=== PATIENT | female | born 1995 | race Caucasian/White ===

== ENCOUNTER 2017-03-12 19:18 | Emergency (ER) | payer OTHER ==
--- NOTE | 2017-03-12 20:07 | ER Document Report ---
ED Medical Screen (RME) - General Chief Complaint: Dizziness Stated Complaint: DIZZINESS Time seen by provider: 20:06 Mode of Arrival: Ambulatory Information source: Patient Notes: This is a 21-year-old female that presents to the emergency room with acute onset of left sharp chest pain. Patient states that she was driving at the time to rest kickball tournament. Patient states she did play a couple of games during the day after the onset of the pain. She presented to the ER when the pain persisted. - Related Data Allergies/Adverse Reactions: No Known Allergies Allergy (Unverified 03/12/17 19:24)
[2017-03-12 20:28] LABS: ABSOLUTE BASOPHILS # (AUTO) 0.1 10^3/uL (0.0-0.2); ABSOLUTE EOSINOPHILS # (AUTO) 0.1 10^3/uL (0.0-0.6); ABSOLUTE LYMPHOCYTES (AUTO) 2.9 10^3/uL (0.5-4.7); ABSOLUTE MONOCYTES (AUTO) 0.8 10^3/uL (0.1-1.4); ABSOLUTE NEUT (AUTO) 10.4 10^3/uL (1.7-8.2); BASOPHILS % (AUTO) 0.6 % (0-2); EOSINOPHILS % (AUTO) 0.5 % (0-6); HEMOGLOBIN 13.9 g/dL (12.0-15.5); HGB HCT DIFFERENCE 0.7; LYMPHOCYTES % (AUTO) 20.1 % (13-45); MEAN CORPUSCULAR HEMOGLOBIN 30.1 pg (27.0-33.4); MEAN CORPUSCULAR HGB CONC 33.8 g/dL (32.0-36.0); MEAN CORPUSCULAR VOLUME 89 fl (80-97); MONOCYTES % (AUTO) 5.7 % (3-13); RED BLOOD COUNT 4.61 10^6/uL (3.72-5.28); RED CELL DISTRIBUTION WIDTH 12.8 % (11.5-14.0); SEGMENTED NEUTROPHILS % (AUTO) 73.1 % (42-78); WHITE BLOOD COUNT 14.3 10^3/uL (4.0-10.5)
[2017-03-12 20:45] LABS: ALANINE AMINOTRANSFERASE 25 U/L (9-52); ALBUMIN 3.9 g/dL (3.5-5.0); ALKALINE PHOSPHATASE 66 U/L (38-126); ANION GAP 8 (5-19); ASPARTATE AMINO TRANSFERASE 14 U/L (14-36); BILIRUBIN,DIRECT 0.2 mg/dL (0.0-0.4); BLOOD UREA NITROGEN 10 mg/dL (7-20); CALCIUM 9.1 mg/dL (8.4-10.2); CARBON DIOXIDE 28 mmol/L (22-30); CHLORIDE 104 mmol/L (98-107); CREATININE RESULT 0.81 mg/dL (0.52-1.25); GLUCOSE 92 mg/dL (75-110); POTASSIUM 4.3 mmol/L (3.6-5.0); SODIUM 140.3 mmol/L (137-145); TOTAL PROTEIN 6.6 g/dL (6.3-8.2)
--- NOTE | 2017-03-12 20:47 | EKG REPORT ---
SEVERITY:- OTHERWISE NORMAL ECG - SINUS TACHYCARDIA : Confirmed by: Grover Brunner MD 12-Mar-2017 20:46:24
[2017-03-12] MEDS ORDERED: KETOROLAC TROMETHAMINE 60 MG/2 ML SDV IM ONE (22:11)
[2017-03-12] MEDS ORDERED: DIPHENHYDRAMINE HCL 50 MG/ML VIAL IM ONE (22:11)
[2017-03-12] MEDS ORDERED: PROCHLORPERAZINE EDISYLATE INJ 10 MG/2 ML VIAL IM ONE (22:11)
--- NOTE | 2017-03-12 22:11 | ER Document Report ---
ED General - General Time seen by provider: 22:05 Mode of Arrival: Ambulatory Information source: Patient TRAVEL OUTSIDE OF THE [place] IN LAST 30 DAYS: No - HPI Onset: This afternoon - Refer to HPI notes Similar symptoms previously: No Recently seen / treated by doctor: No <LOS JAIMES - Last Filed: 03/12/17 22:52> <TAVARES VALIENTE - Last Filed: 03/12/17 23:37> - General Chief Complaint: Dizziness Stated Complaint: DIZZINESS Notes: Patient is a 21-year-old female presented to the emergency department for pain to her left chest and underneath her left breast. Patient states her pain was onset at 12:30 today. Patient describes this pain as sharp and states it moves up into her collarbone but denies it radiating into her back. Patient states the pain came on after she had been driving. Patient plays kickball and states that she was getting out on purpose because she could not run to first base due to her pain. Patient states that her pain is exacerbated with coughing, deep breaths, and movement. Patient states she also had some dizziness and lightheadedness that was onset at dinner around 18:00 or 19:00 tonight. Patient states that she has had one previous anxiety attack that this pain is different. During exam patient states that when there is palpation to her chest it doesn't hurt but instead makes her feel like she can't breathe. Patient states three weeks ago she went to [place] which was [address] Patient denies any personal or family history of blood clots. Patient denies any usage of control. Patient has no known allergies. (LOS JAIMES) - Related Data Allergies/Adverse Reactions: No Known Allergies Allergy (Unverified 03/12/17 19:24) Past Medical History - General Information source: Patient, Friend - Social History Smoking Status: Never Smoker Cigarette use (# per day): No Chew tobacco use (# tins/day): No Frequency of alcohol use: Occasional Drug Abuse: None Family History: None Patient has suicidal ideation: No Patient has homicidal ideation: No Surgical Hx: Negative <LOS JAIMES - Last Filed: 03/12/17 22:52> Review of Systems - Review of Systems Constitutional: No symptoms reported EENT: No symptoms reported Cardiovascular: See HPI, Chest pain, Dizziness, Lightheaded Respiratory: No symptoms reported Gastrointestinal: No symptoms reported Genitourinary: No symptoms reported Female Genitourinary: No symptoms reported Musculoskeletal: No symptoms reported Skin: No symptoms reported Hematologic/Lymphatic: No symptoms reported Neurological/Psychological: No symptoms reported -: Yes All other systems reviewed and negative <LOS JAIMES - Last Filed: 03/12/17 22:52> Physical Exam <LOS JAIMES - Last Filed: 03/12/17 22:52> <TAVARES VALIENTE - Last Filed: 03/12/17 23:37> - Vital signs Vitals: Resp Pulse Ox 17 100 03/12/17 21:55 03/12/17 21:55 - Notes Notes: GENERAL: Alert, interacts well. No acute distress. HEAD: Normocephalic, atraumatic. EYES: Pupils equal, round, and reactive to light. Extraocular movements intact. ENT: Oral mucosa moist, tongue midline. NECK: Full range of motion. Supple. Trachea midline. LUNGS: Tenderness to palpation over the anterior clavicular region, nontender to the posterior clavicular region. Clear to auscultation bilaterally, no wheezes, rales, or rhonchi. No respiratory distress. HEART: Regular rate and rhythm. No murmurs, gallops, or rubs. ABDOMEN: Soft, non-tender. Non-distended. Bowel sounds present in all 4 quadrants. EXTREMITIES: Moves all 4 extremities spontaneously. No edema, radial and dorsalis pedis pulses 2/4 bilaterally. No cyanosis. NEUROLOGICAL: Alert and oriented x3. Normal speech. PSYCH: Normal affect, normal mood. SKIN: Warm, dry, normal turgor. No rashes or lesions noted. (LOS JAIMES) Course - Laboratory Result Diagrams: 03/12/17 20:10 03/12/17 20:10 <LOS JAIMES - Last Filed: 03/12/17 22:52> - Laboratory Result Diagrams: 03/12/17 20:10 03/12/17 20:10 <TAVARES VALIENTE - Last Filed: 03/12/17 23:37> - Re-evaluation Re-evalutation: 03/12/17 22:31 CBC shows leukocytosis of 14.3, no source of infection is seen, CMP unremarkable , test is negative, chest x-ray shows no acute process, EKG is nonischemic. Patient is very low risk for pulmonary embolism, has no family history, did have recent long drive other than that no other risk factors. Pain is reproducible on exam and with movement. Suspect intercostal muscle spasm. Patient later on the visit stated that she was beginning to develop a migraine headache, states it feels consistent with her typical headache, patient will be treated with Toradol, Compazine and Benadryl. Patient will be given muscle relaxers and anti-inflammatories to take at home for the intercostal muscle spasm. Discharged home. 03/12/17 23:37 (TAVARES VAILENTE) - Vital Signs Vital signs: Temp Pulse Resp BP Pulse Ox 19 115/71 100 03/12/17 22:01 03/12/17 22:01 03/12/17 22:01 - Laboratory Laboratory results interpreted by me: 03/12/17 20:10 WBC 14.3 H Absolute Neutrophils 10.4 H - EKG Interpretation by Me Additional EKG results interpreted by me: 03/12/17 22:32 EKG shows sinus tachycardia at a rate of 109, normal axis, normal intervals, no ST segment elevations or depressions, no T-wave inversions per my interpretation. (TAVARES VALIENTE) Discharge <LOS JAIMES - Last Filed: 03/12/17 22:52> <TAVARES VALIENTE - Last Filed: 03/12/17 23:37> - Discharge Clinical Impression: Intercostal muscle strain Qualifiers: Encounter type: initial encounter Qualified Code(s): S29.011A - Strain of muscle and tendon of front wall of thorax, initial encounter Migraine Qualifiers: Migraine type: without aura Status migrainosus presence: without status migrainosus Intractability: not intractable Qualified Code(s): G43.009 - Migraine without aura, not intractable, without status migrainosus Condition: Stable Disposition: HOME, SELF-CARE Instructions: Chest Wall Pain ([facility]), Migraine Headache ([facility]) Scribe Attestation: 03/12/17 23:36 I personally performed the services described in the documentation, reviewed and edited the documentation which was dictated to the scribe in my presence, and it accurately records my words and actions. (TAVARES VALIENTE) Scribe Documentation - Scribe Written by Scribe:: Shanda Ramirez, 03/12/17 22:50 acting as scribe for :: Chuck <LOS JAIMES - Last Filed: 03/12/17 22:52>
[2017-03-12 23:17] VITALS: BP 115/71
== END 2017-03-12 23:19 | disposition home or self-care (01) ==
LOC: ER 19:18
DX: S29.011A Strain of muscle and tendon of front wall of thorax, initial encounter (principal); X58.XXXA Exposure to other specified factors, initial encounter; R07.9 Chest pain, unspecified; R42 Dizziness and giddiness; D72.829 Elevated white blood cell count, unspecified; M62.838 Other muscle spasm; R00.0 Tachycardia, unspecified; G43.009 Migraine without aura, not intractable, without status migrainosus
CPT/HCPCS: 93005; 99284; 96372; 36415; 84702; 85025; 80053; 71020; 93010; J1200; J1885; J0780

== ENCOUNTER 2017-11-22 08:47 | Emergency (ER) | payer OTHER ==
--- NOTE | 2017-11-22 09:13 | ER Document Report ---
HPI - HPI Patient complains to provider of: Pelvic cramping Onset: This morning Onset/Duration: Gradual Quality of pain: Cramping Pain Level: 4 Context: Patient states that she is currently about 7 weeks based on last menstrual period. Patient is . Patient reports having an ultrasound last week that did not see an intrauterine . Patient denies any vaginal bleeding. Associated Symptoms: Other - Pelvic cramping. denies: Fever, Vomiting Exacerbated by: Denies Relieved by: Denies Similar symptoms previously: Yes Recently seen / treated by doctor: Yes - ROS ROS below otherwise negative: Yes Systems Reviewed and Negative: Yes All other systems reviewed and negative - CONSTITUTIONAL Constitutional: DENIES: Fever, Chills - CARDIOVASCULAR Cardiovascular: DENIES: Chest pain - RESPIRATORY Respiratory: DENIES: Coughing - GASTROINTESTINAL Gastrointestinal: REPORTS: Abdominal Pain. DENIES: Nausea, Patient vomiting - URINARY Urinary: DENIES: Dysuria, Urgency, Frequency - MUSCULOSKELETAL Musculoskeletal: DENIES: Back Pain - DERM Skin Color: Normal Skin Problems: None Past Medical History - General Information source: Patient - Social History Smoking Status: Never Smoker Frequency of alcohol use: None Drug Abuse: None Occupation: None Lives with: Family Family History: None - Medical History Medical History: Negative Renal/ Medical History: Denies: Hx Peritoneal Dialysis Past Surgical History: Reports: Hx Herniorrhaphy Vertical Provider Document - CONSTITUTIONAL Agree With Documented VS: Yes Exam Limitations: No Limitations General Appearance: WD/WN, No Apparent Distress - INFECTION CONTROL TRAVEL OUTSIDE OF THE [place] IN LAST 30 DAYS: No - HEENT HEENT: Atraumatic, Normocephalic - NECK Neck: Normal Inspection, Supple - RESPIRATORY Respiratory: Breath Sounds Normal, No Respiratory Distress O2 Sat by Pulse Oximetry: 99 - CARDIOVASCULAR Cardiovascular: Regular Rate, Regular Rhythm, No Murmur - GI/ABDOMEN Gastrointestinal: Abdomen Soft, Abdomen Tender - Lower pelvic - BACK Back: Normal Inspection. negative: CVA Tenderness-Right, CVA Tenderness-Left - MUSCULOSKELETAL/EXTREMETIES Musculoskeletal/Extremeties: JOSE BOURGEOIS - NEURO Level of Consciousness: Awake, Alert, Appropriate Motor/Sensory: No Motor Deficit - DERM Integumentary: Warm, Dry, No Rash Course - Re-evaluation Re-evalutation: 11/22/17 13:05 Patient states that she she has a prescription of Keflex at home that she never took that she was given last week for UTI. Patient encouraged to take this medication at home and that a urine culture will be performed and we will call her if she needs any different treatment. Patient encouraged to follow-up with her B[facility]ING AND JOINING SUPERVISOR for further evaluation. Patient states that her [employer]ING AND JOINING SUPERVISOR told her that she needs to have a D&C scheduled as there was nothing in her gestational sac on ultrasound. Patient states she told them that she will have repeat blood work done which prompted her to come here today. Patient advised of her lab test results as well as ultrasound report finding. Patient advised of worsening symptoms to return immediately for. Patient encouraged to see her OB/ TRAFFIC INSPECTOR for further evaluation. - Vital Signs Vital signs: Temp Pulse Resp BP Pulse Ox 98.6 F 95 13 106/56 L 99 11/22/17 08:51 11/22/17 08:51 11/22/17 08:51 11/22/17 08:51 11/22/17 08:51 - Laboratory Result Diagrams: 11/22/17 09:32 11/22/17 09:32 Laboratory results interpreted by me: 11/22/17 13:06 Labs- Entire Visit 11/22/17 11/22/17 11/22/17 09:32 09:32 09:32 WBC 6.7 RBC 4.19 Hgb 12.6 Hct 37.5 MCV 90 MCH 30.2 MCHC 33.7 RDW 12.5 Plt Count 277 Seg Neutrophils % 63.2 Lymphocytes % 28.4 Monocytes % 6.8 Eosinophils % 1.2 Basophils % 0.4 Absolute Neutrophils 4.3 Absolute Lymphocytes 1.9 Absolute Monocytes 0.5 Absolute Eosinophils 0.1 Absolute Basophils 0.0 Sodium 139.2 Potassium 4.2 Chloride 105 Carbon Dioxide 28 Anion Gap 6 BUN 9 Creatinine 0.56 Est GFR ( Amer) > 60 Est GFR (Non-Af Amer) > 60 Glucose 82 Calcium 8.8 Total Bilirubin 0.9 Direct Bilirubin 0.1 Neonat Total Bilirubin Not Reportable Neonat Direct Bilirubin Not Reportable Neonat Indirect Bili Not Reportable AST 19 ALT 22 Alkaline Phosphatase 61 Total Protein 6.7 Albumin 3.9 Beta HCG, Quant 68807.00 H Total Beta HCG POSITIVE Urine Color Urine Appearance Urine pH Ur Specific [place] Urine Protein Urine Glucose (UA) Urine Ketones Urine Blood Urine Nitrite Urine Bilirubin Urine Urobilinogen Ur Leukocyte Esterase Urine WBC (Auto) Urine RBC (Auto) Urine Bacteria (Auto) Squamous Epi Cells Auto Urine Mucus (Auto) Urine Ascorbic Acid Blood Type AB POSITIVE Rhogam Indicated RHOGAM NOT INDICATED 11/22/17 09:48 WBC RBC Hgb Hct MCV MCH MCHC RDW Plt Count Seg Neutrophils % Lymphocytes % Monocytes % Eosinophils % Basophils % Absolute Neutrophils Absolute Lymphocytes Absolute Monocytes Absolute Eosinophils Absolute Basophils Sodium Potassium Chloride Carbon Dioxide Anion Gap BUN Creatinine Est GFR ( Amer) Est GFR (Non-Af Amer) Glucose Calcium Total Bilirubin Direct Bilirubin Neonat Total Bilirubin Neonat Direct Bilirubin Neonat Indirect Bili AST ALT Alkaline Phosphatase Total Protein Albumin Beta HCG, Quant Total Beta HCG Urine Color STRAW Urine Appearance CLEAR Urine pH 7.0 Ur Specific [place] 1.006 Urine Protein NEGATIVE Urine Glucose (UA) NEGATIVE Urine Ketones NEGATIVE Urine Blood NEGATIVE Urine Nitrite NEGATIVE Urine Bilirubin NEGATIVE Urine Urobilinogen NEGATIVE Ur Leukocyte Esterase LARGE H Urine WBC (Auto) 5 Urine RBC (Auto) 0 Urine Bacteria (Auto) 3+ Squamous Epi Cells Auto 5 Urine Mucus (Auto) RARE Urine Ascorbic Acid NEGATIVE Blood Type Rhogam Indicated - Diagnostic Test Radiology reviewed: Reports reviewed - Reviewed ultrasound from previous ER visits [facility] Discharge - Discharge Clinical Impression: Pelvic cramping, test positive UTI (urinary tract infection) Qualifiers: Urinary tract infection type: site unspecified Hematuria presence: without hematuria Qualified Code(s): N39.0 - Urinary tract infection, site not specified Condition: Stable Disposition: HOME, SELF-CARE Instructions: Acetaminophen, Miscarriage Impending ([facility]), Urinary Tract Infection ([facility]) Additional Instructions: Return immediately for any new or worsening symptoms Followup with your primary care provider, call tomorrow to make a followup appointment Urine culture is pending, we will call if you need any different treatment Your ultrasound reports show findings concerning for intrauterine failure, it is important that you follow-up with an [facility] AND JOINING SUPERVISOR for further evaluation. Call tomorrow for an appointment time Referrals: [facility] [Provider Group] - Follow up tomorrow
[2017-11-22 09:40] LABS: ABSOLUTE EOSINOPHILS # (AUTO) 0.1 10^3/uL (0.0-0.6); ABSOLUTE LYMPHOCYTES (AUTO) 1.9 10^3/uL (0.5-4.7); ABSOLUTE MONOCYTES (AUTO) 0.5 10^3/uL (0.1-1.4); ABSOLUTE NEUT (AUTO) 4.3 10^3/uL (1.7-8.2); BASOPHILS % (AUTO) 0.4 % (0-2); EOSINOPHILS % (AUTO) 1.2 % (0-6); HEMATOCRIT 37.5 % (36.0-47.0); HEMOGLOBIN 12.6 g/dL (12.0-15.5); LYMPHOCYTES % (AUTO) 28.4 % (13-45); MEAN CORPUSCULAR HEMOGLOBIN 30.2 pg (27.0-33.4); MEAN CORPUSCULAR HGB CONC 33.7 g/dL (32.0-36.0); MEAN CORPUSCULAR VOLUME 90 fl (80-97); MONOCYTES % (AUTO) 6.8 % (3-13); PLATELET COUNT 277 10^3/uL (150-450); RED BLOOD COUNT 4.19 10^6/uL (3.72-5.28); RED CELL DISTRIBUTION WIDTH 12.5 % (11.5-14.0); SEGMENTED NEUTROPHILS % (AUTO) 63.2 % (42-78); TOTAL CELLS COUNTED % (AUTO) 100 %; WHITE BLOOD COUNT 6.7 10^3/uL (4.0-10.5)
[2017-11-22 10:00] LABS: ALANINE AMINOTRANSFERASE 22 U/L (9-52); ALBUMIN 3.9 g/dL (3.5-5.0); ALKALINE PHOSPHATASE 61 U/L (38-126); ANION GAP 6 (5-19); ASPARTATE AMINO TRANSFERASE 19 U/L (14-36); BILIRUBIN,DIRECT 0.1 mg/dL (0.0-0.4); BILIRUBIN,TOTAL 0.9 mg/dL (0.2-1.3); BLOOD UREA NITROGEN 9 mg/dL (7-20); CALCIUM 8.8 mg/dL (8.4-10.2); CARBON DIOXIDE 28 mmol/L (22-30); CHLORIDE 105 mmol/L (98-107); GLUCOSE 82 mg/dL (75-110); POTASSIUM 4.2 mmol/L (3.6-5.0); SODIUM 139.2 mmol/L (137-145); TOTAL PROTEIN 6.7 g/dL (6.3-8.2)
[2017-11-22 10:09] LABS: APPEARANCE,URINE CLEAR; BILIRUBIN,URINE NEGATIVE (NEGATIVE); COLOR,URINE STRAW; GLUCOSE, URINE NEGATIVE (NEGATIVE); KETONES,URINE NEGATIVE (NEGATIVE); LEUKOCYTE ESTERASE,URINE LARGE (NEGATIVE); NITRITE,URINE NEGATIVE (NEGATIVE); PROTEIN,URINE NEGATIVE (NEGATIVE); URINE SPECIFIC GRAVITY 1.006; UROBILINOGEN,URINE NEGATIVE mg/dL (<2.0)
--- NOTE | 2017-11-22 12:43 | RADIOLOGY REPORT (SQ) ---
EXAM DESCRIPTION: U/S OB TRANSVAGINAL W/O DOP COMPLETED DATE/TIME: 11/22/2017 12:06 pm REASON FOR STUDY: pelvic pain COMPARISON: None. TECHNIQUE: Transabdominal static and realtime grayscale images acquired of the pelvis. Additional se lected spectral and color Doppler images recorded. All images stored on PACs. bHCG: Not applicable. LIMITATIONS: None. FINDINGS: UTERUS: No masses. No anomalies. GESTATIONAL SAC: Yes, with mean sac diameter of 2.4 cm. 2.2 cm subchorionic bleed. YOLK SAC: No POLE: No. Lack of pole is suspicious for failure RIGHT ADNEXA: Normal ovary with normal vascular flow. No adnexal free fluid. No adnexal masses. LEFT ADNEXA: Normal ovary with normal vascular flow. No adnexal free fluid. No adnexal masses. FREE FLUID: None. OTHER: No other significant finding. IMPRESSION: 1. Findings suspicious for intrauterine failure. Follow-up study would prove useful for confirmation. Trimester of : First - 0 to 13 weeks. TECHNICAL DOCUMENTATION: JOB ID: [id number] [employer]- All Rights Reserved
[2017-11-22 13:13] VITALS: BP 110/57
== END 2017-11-22 13:29 | disposition home or self-care (01) ==
LOC: ER 08:47
DX: N39.0 Urinary tract infection, site not specified (principal); R10.2 Pelvic and perineal pain; Z3A.01 Less than 8 weeks gestation of pregnancy
CPT/HCPCS: 36415; 76817; 80053; 81001; 84702; 85025; 86900; 86901; 87086; 99284